=== PATIENT | male | born 1960 | race Two or more races ===

== ENCOUNTER 2017-08-12 10:01 | Emergency (ER) | payer OTHER ==
[~2017-08-12] VITALS: Ht 172.7 cm; Wt 65.3 kg
[2017-08-12] MEDS ORDERED: FLUORESCEIN SOD 1 MG TEST STRIP OP ONE (11:15)
[2017-08-12 11:16] VITALS: BP 139/73
== END 2017-08-12 11:53 | disposition home or self-care (01) ==
LOC: ER 10:01
DX: S05.01XA Injury of conjunctiva and corneal abrasion without foreign body, right eye, initial encounter (principal); W22.8XXA Striking against or struck by other objects, initial encounter; Y93.89 Activity, other specified; Y99.8 Other external cause status; Y92.89 Other specified places as the place of occurrence of the external cause

== ENCOUNTER 2018-11-08 11:08 | Emergency (ER) | payer OTHER ==
[~2018-11-08] VITALS: Ht 172.7 cm; Wt 95.3 kg
[2018-11-08 11:38] VITALS: BP 120/70
[2018-11-08] MEDS ORDERED: KETOROLAC TROMETH 60MG/2ML VIAL IM ONE (13:00)
== END 2018-11-08 13:11 | disposition home or self-care (01) ==
LOC: ER 11:08
DX: J01.90 Acute sinusitis, unspecified (principal); J44.9 Chronic obstructive pulmonary disease, unspecified; E11.9 Type 2 diabetes mellitus without complications; E78.5 Hyperlipidemia, unspecified; I10 Essential (primary) hypertension; M19.90 Unspecified osteoarthritis, unspecified site
CPT/HCPCS: 70450; 96372; 99284; J1885